=== PATIENT | female | born 1955 | race Caucasian/White ===

== ENCOUNTER → 2019-03-14 | Outpatient (CLI) | payer BC ==
--- NOTE | 2019-03-15 14:11 | MM ---
Reason for exam: screening (asymptomatic). Last mammogram was performed 3 years and 4 months ago. History: Patient is postmenopausal. Cyst aspiration of the left breast. Took estrogen for 11 years 6 months. Physical Findings: A clinical breast exam by your physician is recommended on an annual basis and results should be correlated with mammographic findings. MG 3D Screening Mammo W/Cad Bilateral CC and MLO view(s) were taken. Prior study comparison: November 12, 2015, bilateral MG screening mammo w CAD. October 22, 2004, bilateral screening mammogram. The breast tissue is heterogeneously dense. This may lower the sensitivity of mammography. There is no discrete abnormality. ASSESSMENT: Negative, BI-RAD 1 RECOMMENDATION: Routine screening mammogram of both breasts in 1 year.
== END | disposition home or self-care (01) ==
LOC: RADMAMWWP 09:25
PROVIDERS: ATTEND Family Medicine
DX: Z12.31 Encounter for screening mammogram for malignant neoplasm of breast (principal)
CPT/HCPCS: 77063; 77067

== ENCOUNTER → 2020-06-25 | Outpatient (CLI) | payer MEDICARE ==
--- NOTE | 2020-06-25 08:54 | MR ---
EXAMINATION TYPE: MR knee RT wo con DATE OF EXAM: 06/25/2020 COMPARISON: Outside right knee x-ray May 27, 2020. HISTORY: Rt knee pain per order. Pain and swelling for 30 years per patient. TECHNIQUE: Multiplanar, multisequence images of the knee is performed without IV contrast. FINDINGS: MEDIAL MENISCUS: Medial extrusion medial meniscus on coronal images. Dense triangle shaped increased signal posterior horn extending towards the central body does not definitively extend to articular raza rface. Anterior horn is intact. LATERAL MENISCUS: Anterior and posterior horns are intact without tear. CRUCIATE LIGAMENTS: The anterior and posterior cruciate ligaments are intact and unremarkable. COLLATERAL LIGAMENTS: The medial collateral ligament and lateral collateral ligament complex are inta ct. Some thickening of the proximal portions is noted. Some increased signal of the proximal attachme nt of the lateral collateral ligament complex localized to the biceps femoris. EXTENSOR MECHANISM: Visualized quadriceps and patellar tendons are intact. EFFUSION: There is a large suprapatellar joint effusion. POPLITEAL CYST: No popliteal/dsouza cyst. TRICOMPARTMENT SPACES: Moderate to severe narrowing with mild spurring patellofemoral compartment. Mi ld to moderate narrowing and spurring medial and lateral tibiofemoral compartments. CARTILAGE: Significant chondromalacia patella with full-thickness cartilaginous loss along majority o f the posterior patellar pole. Fissuring and cartilaginous loss medial tibiofemoral compartment. BONE MARROW SIGNAL: Small focal areas of increased T2 signal posterior central patella axial images 1 9 and 20 for reference at site of full-thickness cartilaginous loss. Subchondral cystic change centra l tibial plateau near condyles. The lateral tibial plateau shows roughly 8 mm AP by 10 mm transverse coronal image 15 and sagittal image 20 of low T1 and increased T2 signal central aspect. There is add itional subchondral cystic change lateral aspect distal lateral femoral condyle with some surrounding osseous edema sagittal image 23 and coronal image 16. OTHER: No additional significant abnormality is appreciated. IMPRESSION: 1. Large suprapatellar joint effusion. 2. 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 Significant full-thicknes s chondral malacia patella noted. More moderate degenerative changes medial lateral tibiofemoral comp artments as detailed above. 3. Significant intrasubstance tear posterior horn medial meniscus extending to central body. Full-thi ckness tear not distinctly visualized but difficult to exclude.
== END | disposition home or self-care (01) ==
LOC: RADMRIMAIN 07:27
PROVIDERS: ATTEND Orthopaedic Surgery
DX: S83.241A Other tear of medial meniscus, current injury, right knee, initial encounter (principal); M17.11 Unilateral primary osteoarthritis, right knee; M22.41 Chondromalacia patellae, right knee

== ENCOUNTER → 2020-09-10 | Outpatient (CLI) | payer MEDICARE ==
--- NOTE | 2020-09-10 12:59 | XR ---
EXAMINATION TYPE: XR chest 2V DATE OF EXAM: 09/10/2020 COMPARISON: NONE HISTORY: Shortness of breath, R06.02 TECHNIQUE: Frontal and lateral views of the chest are obtained. FINDINGS: There is no focal air space opacity, pleural effusion, or pneumothorax seen. The cardiac silhouette size is within normal limits. The osseous structures are intact. IMPRESSION: No acute cardiopulmonary process.
== END | disposition home or self-care (01) ==
LOC: RADXRMAIN 10:35
PROVIDERS: ATTEND Family Medicine
DX: R06.02 Shortness of breath (principal); Z85.118 Personal history of other malignant neoplasm of bronchus and lung
CPT/HCPCS: 71046

== ENCOUNTER → 2020-09-11 | Outpatient (CLI) | payer MEDICARE ==
--- NOTE | 2020-09-11 15:32 | US ---
EXAMINATION TYPE: US carotid duplex BILAT DATE OF EXAM: 09/11/2020 COMPARISON: NONE CLINICAL HISTORY: R42 dizziness. Dizziness EXAM MEASUREMENTS: RIGHT: Peak Systolic Velocity (PSV) cm/sec ----- Right CCA: 72.1 ----- Right ICA: 109.9 ----- Right ECA: 121.5 ICA/CCA ratio: 1.5 RIGHT: End Diastole cm/sec ----- Right CCA: 24.1 ----- Right ICA: 37.2 ----- Right ECA: 16.9 LEFT: Peak Systolic Velocity (PSV) cm/sec ----- Left CCA: 88.1 ----- Left ICA: 178.00 ----- Left ECA: 67.7 ICA/CCA ratio: 2.0 LEFT: End Diastole cm/sec ----- Left CCA: 32.8 ----- Left ICA: 64.1 ----- Left ECA: 16.0 VERTEBRALS (direction of flow): Right Vertebral: Antegrade Left Vertebral: Antegrade Rhythm: Normal Atheromatous plaquing is present. There is increased left internal carotid artery velocity in the ran ge of moderate narrowing 50-69%. IMPRESSION: Moderate left internal carotid artery stenosis between 50 and 69% Criteria for Assigning % of Stenosis / Diameter reduction (Estimation based on the indirect measurements of the internal carotid artery velocities (ICA PSV). 1. Normal (no stenosis)=ICA PSV < 125 cm/s: ratio < 2.0: ICA EDV<40 cm/s. 2. Less than 50% stenosis=ICA PSV < 125 cm/s: ratio < 2.0: ICA EDV<40 cm/s. 3. 50 to 69% stenosis=ICA PSV of 125 to 230 cm/s: ration 2.0 ? 4.0: ICA EDV 40-100 cm/s. 4. Greater than 70% stenosis to near occlusion= ICA PSV > 230 cm/s: ratio > 4.0: ICA EDV > 100 cm/s. 5. Near occlusion= ICA PSV velocities may be low or undetectable: variable ratio and ICA EDV. 6. Total occlusion=unable to detect flow.
== END | disposition home or self-care (01) ==
LOC: RADUSWWP 14:48
PROVIDERS: ATTEND Family Medicine
DX: I65.22 Occlusion and stenosis of left carotid artery (principal)
CPT/HCPCS: 93880

== ENCOUNTER → 2021-08-18 | Outpatient (CLI) | payer MEDICARE ==
--- NOTE | 2021-08-19 14:23 | MM ---
Reason for exam: screening (asymptomatic). Last mammogram was performed 2 years and 5 months ago. History: Patient is postmenopausal. Cyst aspiration of the left breast. Took hormonal contraceptives for 10 years. Took estrogen for 11 years 6 months. Physical Findings: A clinical breast exam by your physician is recommended on an annual basis and results should be correlated with mammographic findings. MG Screening Mammo w CAD Bilateral CC and MLO view(s) were taken. Prior study comparison: March 14, 2019, bilateral MG 3d screening mammo w/cad. November 12, 2015, bilateral MG screening mammo w CAD. There are scattered fibroglandular densities. No significant changes when compared with prior studies. ASSESSMENT: Benign, BI-RAD 2 RECOMMENDATION: Routine screening mammogram of both breasts in 1 year.
== END | disposition home or self-care (01) ==
LOC: RADMAMWWP 09:46
PROVIDERS: ATTEND Family Medicine
DX: Z12.31 Encounter for screening mammogram for malignant neoplasm of breast (principal); Z78.0 Asymptomatic menopausal state
CPT/HCPCS: 77067

== ENCOUNTER → 2022-02-14 | Outpatient (CLI) | payer MEDICARE ==
--- NOTE | 2022-02-15 16:48 | BD ---
EXAMINATION TYPE: Axial Bone Density DATE OF EXAM: 02/14/2022 COMPARISON: NONE CLINICAL HISTORY: 66 years year old Female. ICD-10 CODE: N95.1 POST MENOPAUSAL SYMPTOMS Height: 64 IN Weight: 211 LBS FRAX RISK QUESTIONS: Secondary Osteoporosis: 3. Menopause before 45: PARTIAL HYST AGE 36Current Tobacco Use: YES RISK FACTORS HISTORY OF: History of Wrist Fracture: LT WRIST FX AGE 23 Active: YES Diet low in dairy products/other sources of calcium: YES Postmenopausal woman: PARTIAL HYST AGE 36 Take estrogen and/or progesterone medications: NOT NOW How lon YEARS MEDICATIONS: Additional Medications: PROZAC, CRESTOR, 81 MG ASPIRIN, EXAM MEASUREMENTS: Bone mineral densitometry was performed using the Site Organic System. Bone mineral density as measured about the Lumbar spine is: ----- L1-L4(G/cm2): 1.422 T Score Values are as follows: ----- L1: 0.0 ----- L2: 2.2 ----- L3: 2.4 ----- L4: 3.2 ----- L1-L4: 2. Bone mineral density BASELINE Bone mineral density about the R hip (g/cm2): 1.102 Bone mineral density about the L hip (g/cm2): 1.089 T Score values are as follows: -----R Neck: 0.5 -----L Neck: 0.4 -----R Total: 1.6 -----L Total: 1.6 Bone mineral density BASELINE FRAX%s: The graph provided illustrates a 5.8 chance for a major osteoporotic fx and a 0.3 chance for the hips probability for fx in 10 years time. IMPRESSION: Normal (Values between +1 and -1 indicate normal bone mass). Consider repeating this study in 5 year s or sooner if there is some new clinical indication. NOTE: T-SCORE=SD OF THE YOUNG ADULT MEAN.
== END | disposition home or self-care (01) ==
LOC: RADBDWWP 16:18
PROVIDERS: ATTEND Family Medicine
DX: Z78.0 Asymptomatic menopausal state (principal)
CPT/HCPCS: 77080

== ENCOUNTER → 2022-07-19 | Outpatient (CLI) | payer MEDICARE ==
--- NOTE | 2022-07-19 07:47 | CTL ---
EXAMINATION TYPE: CT Low Dose Lung DATE OF EXAM ORDERED: 07/19/2022 HISTORY: Long-term tobacco use. Lung cancer screening CT DLP: 130.[address] CTDI: 3.8 mGy Automated exposure control for dose reduction was used. SCREENING VISIT: Baseline COMPARISON: None TECHNIQUE: Low dose computed tomography scan was performed through the chest at 1 mm thick sections a nd reconstructed images in multiple planes at 1 mm and [address] DIAGNOSTIC QUALITY: Limited, but interpretable FINDINGS: LUNG NODULES: Small subcentimeter nodule evaluation limited by underlying groundglass opacities and r eticulation along with areas of fibrotic change and/or honeycombing noted bilaterally. For reference there is a 3 to 4 mm peripheral calcified nodule of benign granuloma lateral left lung axial image 13 1. No definitive greater than 5 mm noncalcified pulmonary nodules. LUNGS: COPD: Severity: Mild Fibrosis: Severity: Moderate to advanced bilateral fibrotic changes predominantly peripherally with b oth upper and lower lung involvement. Lymph nodes: Prominent but subcentimeter prevascular along with paratracheal lymph nodes Other findings: Prominent pulmonary arteries suggesting underlying pulmonary hypertension RIGHT PLEURAL SPACE: Effusion: None Calcification: None Thickening: None Pneumothorax: None LEFT PLEURAL SPACE: Effusion: None Calcification: None Thickening: None Pneumothorax: None HEART: Heart Size: Normal Coronary Calcification: Moderate Pericardial Effusion: Trace OTHER FINDINGS: Upper abdomen: None Bony thorax: None Supraclavicular region: None Other: None IMPRESSION: Moderate to advanced parenchymal fibrotic changes bilaterally involving both upper and lo wer lungs. Mild emphysematous change. No suspicious nodules or masses. CT LUNG RAD AND CT CHEST RECOMMENDATION: Lung-Rad 1 Negative: Continue annual screening with LDCT in 12 months. S Modifier (other clinically significant findings): S Significant bilateral pulmonary fibrotic changes. Correlate for IPF. Consider pulmonary referral. Und erlying pulmonary artery hypertension suspected.
== END | disposition home or self-care (01) ==
LOC: RADCTMAIN 06:17
PROVIDERS: ATTEND Family Medicine
DX: Z12.2 Encounter for screening for malignant neoplasm of respiratory organs (principal); J84.10 Pulmonary fibrosis, unspecified; Z87.891 Personal history of nicotine dependence
CPT/HCPCS: 71271

== ENCOUNTER → 2023-08-08 | Outpatient (CLI) | payer MEDICARE ==
--- NOTE | 2023-08-16 12:15 | CTL ---
EXAMINATION TYPE: CT Low Dose Lung DATE OF EXAM: 08/08/2023 10:28 AM CLINICAL INDICATION:Female, 68 years old with history of R91.8 ABNORMAL FINDING LUNG FIELD; Nicotine dependence 1 pack a day for 35 years , history of tobacco use. COMPARISON: 07/19/2022 report only. TECHNIQUE: Multiple axial non-contrast scans were obtained from approximately the lung apices through the upper abdomen. Coronal and sagittal reformatted images were obtained. Low dose technique was uti lized. CT DLP: 82.9 mGycm, Automated exposure control for dose reduction was used. CT Contrast: Contrast used: None Oral contrast used: None FINDINGS: ======== Lack of intravenous contrast and low dose technique limits the evaluation of the vascular and soft ti ssue structures. LUNGS: No evidence of pulmonary fibrosis. No evidence of focal consolidation, pneumothorax or pleural effusion. Redemonstration of fibrotic changes throughout the lungs most pronounced along the periphery with sca ttered groundglass opacities. Nodules: RUL: None. RML: None. RLL: None. YULY: None. LLL: None. AIRWAY: Patent and unremarkable. HEART: Size within normal limits. Moderate to severe coronary artery calcifications. The pulmonary tr unk is dilated up to 1 cm 2.8 cm. MEDIASTINUM: No gross evidence of adenopathy. Moderate coronary artery atherosclerosis. VASCULATURE: No aortic aneurysm. MUSCULOSKELETAL: No acute osseous abnormalities SOFT TISSUES/LYMPH NODES: Prominent lymph nodes in the mediastinum measuring up to 9 mm in short axis in the right low paratracheal and 11 mm in short axis in the AP window. LOWER NECK: No significant findings. UPPER ABDOMEN: No significant findings. IMPRESSION: 1. No clinically significant pulmonary nodules. 2. Moderate Pulmonary fibrotic change suspicious for underlying pulmonary interstitial disease possib ly NSIP sequela prior atypical infection such as covid 19. 3. Evidence of pulmonary hypertension. 4. Moderate coronary artery calcifications. CT LUNG RAD AND CT CHEST RECOMMENDATION: Lung-Rad 1 Negative: Continue annual screening with LDCT in 12 months. S Modifier (other clinically significant findings): None Recommend smoking cessation (if current smoker), or continuation of smoking cessation (if prior smoke r). Annual screening for lung cancer with low-dose computed tomography is recommended in adults ages 55 to 77 years who have a 30 pack-year smoking history and currently smoke or have quit within the pa st 15 years. Screening should be discontinued once a person has not smoked for 15 years or develops a health problem that substantially limits life expectancy or the ability or willingness to have curat alexandr lung surgery. Lung rads 2021 [email or web address]
== END | disposition home or self-care (01) ==
LOC: RADCTMAIN 09:57
PROVIDERS: ATTEND Family Medicine
DX: Z12.2 Encounter for screening for malignant neoplasm of respiratory organs (principal); F17.210 Nicotine dependence, cigarettes, uncomplicated; I27.20 Pulmonary hypertension, unspecified; I25.10 Atherosclerotic heart disease of native coronary artery without angina pectoris; J84.10 Pulmonary fibrosis, unspecified; R91.8 Other nonspecific abnormal finding of lung field
CPT/HCPCS: 71271

== ENCOUNTER 2023-10-08 10:23 | Inpatient (IN) | payer MEDICARE ==
--- NOTE | 2023-10-08 10:55 | XR ---
EXAMINATION TYPE: XR chest 2V DATE OF EXAM: 10/08/2023 COMPARISON: 09/10/2020 INDICATION: Pneumonia short of breath covid TECHNIQUE: Single frontal view of the chest is obtained. FINDINGS: The heart size is normal. The pulmonary vasculature is prominent. Mild scattered diffuse increased lung markings are present which can be compatible with atypical pneu monia. Focal consolidation is not identified. IMPRESSION: 1. Increased lung markings can be compatible with atypical pneumonia. 2. Some vascular prominence evident.
[2023-10-08] MEDS ORDERED: ALBUTEROL NEBULIZED 2.5 MG/3 ML INHALATION STA (12:22)
--- NOTE | 2023-10-08 12:24 | ED ---
SOB HPI - General Chief Complaint: Shortness of Breath Stated Complaint: Low O2 Time Seen by Provider: 10/08/23 11:51 Source: patient Mode of arrival: ambulatory Limitations: no limitations - History of Present Illness Initial Comments: The patient is a 68-year-old female who has a history of hyperlipidemia and COPD. But otherwise healthy presents emergency room who presents to emergency room with complaints of shortness of breath and flulike symptoms. Patient had not home hospital Covid test earlier in the week and follow up at urgent care to hopefully start the antiviral however was found to be hypoxic with ambulation. Patient had a positive Covid test that was confirmed at the urgent care. Her O2 sat on ambulation dropped to 85% was 92-93% at rest. Patient is not on routine inhalers at home at this time. She has not coming pulmonology appointment with Dr. Martinez who is she is newly establishing with. SHe smokes about half a pack of cigarettes a day. She denies any chest pain or hemoptysis. She had a fever earlier in the week but states that this is improved. She denies any pain or signs of lower Erlinda's. Denies any recent travel or recent surgery. Denies any history of DVT or PE - Related Data Home Medications Medication Instructions Recorded Confirmed Naproxen Sodium [Aleve] 220 mg PO Q12HR PRN 04/21/15 04/21/15 Allergies Allergy/AdvReac Type Severity Reaction Status Date / Time codeine Allergy Unknown Nausea & Verified 04/21/15 17:41 Vomiting Review of Systems ROS Statement: Those systems with pertinent positive or pertinent negative responses have been documented in the HPI. ROS Other: All systems not noted in ROS Statement are negative. Past Medical History Past Medical History: COPD Additional Past Medical History / Comment(s): ECZEMA? ON HIP History of Any Multi-Drug Resistant Organisms: None Reported Past Surgical History: Hysterectomy, Orthopedic Surgery Additional Past Surgical History / Comment(s): ANKLE SURG Past Anesthesia/Blood Transfusion Reactions: No Reported Reaction Past Psychological History: Depression Smoking Status: Current every day smoker Past Alcohol Use History: None Reported Past Drug Use History: None Reported - Past Family History Sister(s) Family Medical History: Diabetes Mellitus Additional Family Medical History / Comment(s): X2 SISTERS WITH DIABETES. Mother Family Medical History: Cancer Additional Family Medical History / Comment(s): CERVICAL CA General Exam Limitations: no limitations General appearance: alert, in no apparent distress Head exam: Present: atraumatic Eye exam: Present: normal appearance ENT exam: Present: normal exam Neck exam: Present: normal inspection Respiratory exam: Present: normal lung sounds bilaterally. Absent: wheezes Cardiovascular Exam: Present: regular rate Extremities exam: Present: full ROM Back exam: Present: full ROM Neurological exam: Present: alert, oriented X3, CN II-XII intact Psychiatric exam: Present: normal affect, normal mood Skin exam: Present: warm, dry Course Vital Signs 10/08/23 10/08/23 10:24 12:16 Temperature 97.5 F L Pulse Rate 76 Respiratory 18 20 Rate Blood Pressure 119/74 O2 Sat by Pulse 92 L Oximetry - Reevaluation(s) Reevaluation #1: 10/08/23 15:35 Respiratory therapist and we cannot get nebulizer treatments as the patient's Covid positive. She would only do inhaled albuterol which the patient received. she continued to be hypoxic with ambulation at 89%. She will be admitted for further management of the covid 19 and hypoxia. Medical Decision Making - Medical Decision Making Was pt. sent in by a medical professional or institution (, PA, COMPUTER NUMERICAL CONTROL OPERATOR, urgent care, hospital, or retirement...) When possible be specific @ -Patient was sent in from an urgent care for hypoxia with ambulation Did you speak to anyone other than the patient for history (EMS, parent, family, police, friend...)? What history was obtained from this source @ -[No] Did you review nursing and triage notes (agree or disagree)? Why? @ -[I reviewed and agree with nursing and triage notes] Were old charts reviewed (outside hosp., previous admission, EMS record, old EKG, old radiological studies, urgent care reports/EKG's, retirement records)? Report findings @ -[No old charts were reviewed] Differential Diagnosis (chest pain, altered mental status, abdominal pain women, abdominal pain men, vaginal bleeding, weakness, fever, dyspnea, syncope, headache, dizziness, GI bleed, back pain, seizure, CVA, palpatations, mental health, musculoskeletal)? @ -[not applicable] EKG interpreted by me (3pts min.). @ -EKG completed on 1124 shows normal sinus rhythm rate of 69bpm, no acute ST segment elevation X-rays interpreted by me (1pt min.). @ -X-ray shows atypical opacities likely from Covid ammonia. CT interpreted by me (1pt min.). @ -[None done] U/S interpreted by me (1pt. min.). @ -[None done] What testing was considered but not performed or refused? (CT, X-rays, U/S, labs)? Why? @ -[None] What meds were considered but not given or refused? Why? @ -Nebulizer treatment with albuterol however respiratory a contact to this as she is positive for Covid Did you discuss the management of the patient with other professionals (professionals i.e. , PA, COMPUTER NUMERICAL CONTROL OPERATOR, lab, RT, psych nurse, social work specialist, flying squad salesperson, teacher, space operations officer, hospice case manager)? Give summary @ -[I spoke with [facility] admitting physician Dr. Villalba regarding patient's admission for hypoxia and Covid] Was smoking cessation discussed for >3mins.? @ -[No] Was critical care preformed (if so, how long)? @ -[No] Were there social determinants of health that impacted care today? How? (Homelessness, low income, unemployed, alcoholism, drug addiction, transportation, low edu. Level, literacy, decrease access to med. care, custodial, rehab)? @ -[No] Was there de-escalation of care discussed even if they declined (Discuss DNR or withdrawal of care, Hospice)? DNR status @ -[No] What co-morbidities impacted this encounter? (DM, HTN, Smoking, COPD, CAD, Cancer, CVA, ARF, Chemo, Hep., AIDS, mental health diagnosis, sleep apnea, morbid obesity)? @ -COPD, smoking Was patient admitted / discharged? Hospital course, mention meds given and route, prescriptions, significant lab abnormalities, going to OR and other pertinent info. @ -This patient will be admitted to the hospital for Covid, hypoxia. Undiagnosed new problem with uncertain prognosis? @ -[No] Drug Therapy requiring intensive monitoring for toxicity (Heparin, Nitro, Insulin, Cardizem)? @ -[No] Were any procedures done? @ -[No] Diagnosis/symptom? @ -COVID-19, hypoxia, COPD Acute, or Chronic, or Acute on Chronic? @ -Acute Uncomplicated (without systemic symptoms) or Complicated (systemic symptoms)? @ -Complicated Side effects of treatment? @ -[No] Exacerbation, Progression, or Severe Exacerbation? @ -[No] Poses a threat to life or bodily function? How? (Chest pain, USA, VT, pneumonia, PE, COPD, DKA, ARF, appy, cholecystitis, CVA, Diverticulitis, Homicidal, Suicidal, threat to staff... and all critical care pts) @ -Yes, hypoxia - Lab Data Result diagrams: 10/08/23 11:45 10/08/23 11:45 Lab Results 10/08/23 10/08/23 10/08/23 Range/Units 11:45 11:45 11:45 WBC 8.1 (3.8-10.6) k/uL RBC 4.34 (3.80-5.40) m/uL Hgb 13.1 (11.4-16.0) gm/dL Hct 39.2 (34.0-46.0) % MCV 90.3 (80.0-100.0) fL MCH 30.1 (25.0-35.0) pg MCHC 33.3 (31.0-37.0) g/dL RDW 13.3 (11.5-15.5) % Plt Count 262 (150-450) k/uL MPV 7.6 Neutrophils % 62 % Lymphocytes % 32 % Monocytes % 4 % Eosinophils % 1 % Basophils % 0 % Neutrophils # 5.0 (1.3-7.7) k/uL Lymphocytes # 2.6 (1.0-4.8) k/uL Monocytes # 0.4 (0-1.0) k/uL Eosinophils # 0.1 (0-0.7) k/uL Basophils # 0.0 (0-0.2) k/uL PT 10.2 (10.0-12.5) sec INR 0.9 (<1.2) APTT 27.2 (22.0-30.0) sec Sodium 136 L (137-145) mmol/L Potassium 4.2 (3.5-5.1) mmol/L Chloride 103 (98-107) mmol/L Carbon Dioxide 24 (22-30) mmol/L Anion Gap 9 mmol/L BUN 13 (7-17) mg/dL Creatinine 0.61 (0.52-1.04) mg/dL Est GFR (CKD-EPI)AfAm >90 (>60 ml/min/1.73 sqM) Est GFR (CKD-EPI)NonAf >90 (>60 ml/min/1.73 sqM) Glucose 80 (74-99) mg/dL Calcium 8.6 (8.4-10.2) mg/dL Total Bilirubin 0.6 (0.2-1.3) mg/dL AST 69 H (14-36) U/L ALT 42 H (4-34) U/L Alkaline Phosphatase 55 (38-126) U/L Troponin I (0.000-0.034) ng/mL NT-Pro-B Natriuret Pep 48 pg/mL Total Protein 7.0 (6.3-8.2) g/dL Albumin 3.5 (3.5-5.0) g/dL 10/08/23 Range/Units 11:45 WBC (3.8-10.6) k/uL RBC (3.80-5.40) m/uL Hgb (11.4-16.0) gm/dL Hct (34.0-46.0) % MCV (80.0-100.0) fL MCH (25.0-35.0) pg MCHC (31.0-37.0) g/dL RDW (11.5-15.5) % Plt Count (150-450) k/uL MPV Neutrophils % % Lymphocytes % % Monocytes % % Eosinophils % % Basophils % % Neutrophils # (1.3-7.7) k/uL Lymphocytes # (1.0-4.8) k/uL Monocytes # (0-1.0) k/uL Eosinophils # (0-0.7) k/uL Basophils # (0-0.2) k/uL PT (10.0-12.5) sec INR (<1.2) APTT (22.0-30.0) sec Sodium (137-145) mmol/L Potassium (3.5-5.1) mmol/L Chloride (98-107) mmol/L Carbon Dioxide (22-30) mmol/L Anion Gap mmol/L BUN (7-17) mg/dL Creatinine (0.52-1.04) mg/dL Est GFR (CKD-EPI)AfAm (>60 ml/min/1.73 sqM) Est GFR (CKD-EPI)NonAf (>60 ml/min/1.73 sqM) Glucose (74-99) mg/dL Calcium (8.4-10.2) mg/dL Total Bilirubin (0.2-1.3) mg/dL AST (14-36) U/L ALT (4-34) U/L Alkaline Phosphatase (38-126) U/L Troponin I <0.012 (0.000-0.034) ng/mL NT-Pro-B Natriuret Pep pg/mL Total Protein (6.3-8.2) g/dL Albumin (3.5-5.0) g/dL - EKG Data -: EKG Interpreted by Me - Radiology Data Radiology results: report reviewed (EKG shows normal sinus rhythm at a rate of 69 bpm), image reviewed Disposition Clinical Impression: Hypoxia, COVID-19, COPD (chronic obstructive pulmonary disease) Disposition: ADMITTED IP TO THIS [facility] Referrals: Octavio Mcconnell DO [Primary Care Provider] - 1-2 days Decision to Admit Reason: Admit from [facility] Decision Time: 16:01
[2023-10-08 12:36] LABS: Basophils % (A) 0 %; Eosinophils # (A) 0.1 k/uL (0-0.7); Eosinophils % (A) 1 %; HCT 39.2 % (34.0-46.0); HGB 13.1 gm/dL (11.4-16.0); Lymphocytes # (A) 2.6 k/uL (1.0-4.8); Lymphocytes % (A) 32 %; MCH 30.1 pg (25.0-35.0); MCHC 33.3 g/dL (31.0-37.0); MCV 90.3 fL (80.0-100.0); Mean Platelet Volume 7.6; Monocytes # (A) 0.4 k/uL (0-1.0); Monocytes % (A) 4 %; Neutrophils % (A) 62 %; Platelet Count 262 k/uL (150-450); RBC 4.34 m/uL (3.80-5.40); RDW 13.3 % (11.5-15.5); WBC 8.1 k/uL (3.8-10.6)
[2023-10-08 12:49] LABS: INR 0.9 (<1.2); Partial Thromboplastin Time 27.2 sec (22.0-30.0); Prothrombin Time 10.2 sec (10.0-12.5)
[2023-10-08 12:59] LABS: ALT 42 U/L (4-34); AST 69 U/L (14-36); African American GFR (CKD) >90 (>60 ml/min/1.73 sqM); Albumin 3.5 g/dL (3.5-5.0); Alkaline Phosphatase 55 U/L (38-126); Anion Gap 9 mmol/L; Blood Urea Nitrogen 13 mg/dL (7-17); Calcium 8.6 mg/dL (8.4-10.2); Carbon Dioxide 24 mmol/L (22-30); Chloride 103 mmol/L (98-107); Glucose 80 mg/dL (74-99); Non-African American GFR(CKD) >90 (>60 ml/min/1.73 sqM); Potassium 4.2 mmol/L (3.5-5.1); Sodium 136 mmol/L (137-145); Total Bilirubin 0.6 mg/dL (0.2-1.3)
[2023-10-08 13:06] LABS: NT-Pro-B-Type Natriuretic Pept 48 pg/mL
[2023-10-08] MEDS ORDERED: ALBUTEROL HFA INHALER INHALATION STA (13:32)
[2023-10-08] MEDS ORDERED: methylPREDNISolone SOD SUCCI 125 MG/2 ML VIAL IV STA (15:22)
[2023-10-08] MEDS ORDERED: NICOTINE 21MG/24HR PATCH TRANSDERM STA (15:33)
[2023-10-08] MEDS ORDERED: NALOXONE 0.4 MG/ML 1 ML VIAL IV PRN (15:45)
[2023-10-08] MEDS: SODIUM CHLORIDE 0.9% 1,000 ML IV SCH (16:38)
[2023-10-08] MEDS ORDERED: ACETAMINOPHEN TAB 325 MG TAB PO PRN (19:12)
[2023-10-08] MEDS: ALBUTEROL HFA INHALER INHALATION SCH (20:52)
[2023-10-09] MEDS: SODIUM CHLORIDE 0.9% 1,000 ML IV SCH ×4 (00:24→22:27)
--- NOTE | 2023-10-09 00:55 | P.CNPUL ---
History of Present Illness Consult date: 10/09/23 Requesting physician: Malini Harden Reason for consult: other (COVID-19) Chief complaint: URI-like symptoms History of present illness: I am seeing this patient in new consultation today 10/09/2023 in the emergency room after she visited a local urgent care center and was found to be hypoxemic. She did test positive for COVID-19 outpatient. Patient is a 68-year-old white female with past medical history significant for hyperlipidemia and COPD. She utilizes a when necessary albuterol inhaler outpatient. She has a history of heavy tobacco dependence, and is down to one half pack per day. Her primary care provider is Dr. Mcconnell, and she did have new patient appointment set up with Dr. Martinez in the pulmonary office next week. She has had a recent low-dose lung CT screening for lung cancer back in August of this year which did show moderate pulmonary fibrotic changes suspicious for underlying pulmonary interstitial disease possibly nonspecific interstitial pneumonia. Looking back, these findings were evident on a chest CT taken 1 year prior. More recently, the patient started having URI-like symptoms starting last week on Monday. She was having a dry nonproductive cough, subjective fevers/chills, body aches, fatigue. She is also having exertional shortness of breath. She did take a home COVID-19 test on Monday, which was positive. She did receive her orginal Covid 19 vaccination and one booster. She went to an urgent care center yesterday, and was found to have low oxygen saturations while ambulating. It was recommended that she come to the emergency room. Currently, the patient is on room air, sitting in a chair near the bedside, in no acute distress. Chest x-ray on arrival showed increased lung markings, possibly related to COVID-19 pneumonia or above. No focal consolidation. CBC on arrival did not show any leukocytosis and was essentially unremarkable. She is afebrile. BMP was also unremarkable. Troponin less than 0.012. NT proBNP low. Patient is on room air. She was started on Decadron. Lovenox was added for DVT prophylaxis. Normal saline is also infusing at 130 ML's per hour. Patient is hemodynamically stable, and will be admitted to the general medical floor. Review of Systems REVIEW OF SYSTEMS: CONSTITUTIONAL: Denies any recent significant weight loss or weight gain. EYES: Denies change in vision. EARS, NOSE, MOUTH, THROAT: Denies headaches, denies sore throat. CARDIOVASCULAR: Denies chest pain, palpitations or syncopal episodes. RESPIRATORY: See HPI GASTROINTESTINAL: Admits isolated/self-limiting nausea and vomiting and occasional diarrhea. No abdominal pain. No bleeding. Admits reduced appetite. GENITOURINARY: Denies hematuria, denies infections. MUSKULOSKELETAL: Denies pain, denies swelling. INTEGUMENTARY: Denies rash, denies eczema. NEUROLOGICAL: Denies recent memory loss, no recent seizure activity. PSYCHIATRIC: Denies anxiety, denies depression. HEMATOLOGIC/LYMPHATIC: Denies anemia, denies enlarged lymph node Past Medical History Past Medical History: COPD Additional Past Medical History / Comment(s): ECZEMA? ON HIP History of Any Multi-Drug Resistant Organisms: None Reported Past Surgical History: Hysterectomy, Orthopedic Surgery Additional Past Surgical History / Comment(s): ANKLE SURG Past Anesthesia/Blood Transfusion Reactions: No Reported Reaction Past Psychological History: Depression Smoking Status: Current every day smoker Past Alcohol Use History: None Reported Past Drug Use History: None Reported - Past Family History Sister(s) Family Medical History: Diabetes Mellitus Additional Family Medical History / Comment(s): X2 SISTERS WITH DIABETES. Mother Family Medical History: Cancer Additional Family Medical History / Comment(s): CERVICAL CA Medications and Allergies Home Medications Medication Instructions Recorded Confirmed Type FLUoxetine HCL 80 mg PO DAILY 10/08/23 10/08/23 History Rosuvastatin Calcium [Crestor] 40 mg PO DAILY 10/08/23 10/08/23 History Allergies Allergy/AdvReac Type Severity Reaction Status Date / Time codeine Allergy Unknown Nausea & Verified 10/08/23 16:44 Vomiting Physical Exam Vitals: Vital Signs Temp Pulse Resp BP Pulse Ox 10/08/23 22:59 92 L 10/08/23 22:58 85 22 137/60 83 L 10/08/23 20:52 93 L 10/08/23 16:30 98.2 F 77 18 108/56 97 10/08/23 12:16 20 10/08/23 10:24 97.5 F L 76 18 119/74 92 L Intake and Output 10/08/23 10/08/23 10/09/23 14:59 22:59 06:59 Other: Weight 92.986 kg GENERAL EXAM: Alert, 68-year-old white female appearing stated age , comfortable in no apparent distress. HEAD: Normocephalic and atraumatic EYES: Normal reaction of pupils, equal size. NOSE: Clear with pink turbinates. THROAT: No erythema or exudates. NECK: No masses, no JVD. CHEST: No chest wall deformity. LUNGS: Equal air entry with bibasilar inspiratory crackles/rales. No wheezes, rhonchi or focal dullness. On room air. No conversational dyspnea or accessory muscle use.. CVS: S1 and S2 normal with no audible murmur, regular rhythm. No extra heart sounds ABDOMEN: No hepatosplenomegaly, active bowel sounds, no guarding or rigidity. SPINE: No scoliosis or deformity SKIN: No rashes CENTRAL NERVOUS SYSTEM: No focal deficits, tone is normal in all 4 extremities. EXTREMITIES: There is severe digital clubbing. There is no peripheral edema or cyanosis. Peripheral pulses are intact. Results - Laboratory Findings CBC and BMP: 10/09/23 07:25 10/09/23 07:25 PT/INR, D-dimer PT 10.2 sec (10.0-12.5) 10/08/23 11:45 INR 0.9 (<1.2) 10/08/23 11:45 Abnormal lab findings: Abnormal Labs 10/08/23 11:45 Sodium 136 L AST 69 H ALT 42 H - Diagnostic Findings Chest x-ray: image reviewed Assessment and Plan Assessment: Acute COVID-19 infection and suspected COVID-19 pneumonia. Chest x-ray on arrival showed increased lung markings, possibly related to COVID-19 pneumonia. No focal consolidations. Exertional dyspnea, secondary to above Suspected underlying ILD, low-dose lung CT screening for lung cancer back in and the year prior, did show moderate pulmonary fibrotic changes suspicious for underlying pulmonary interstitial disease. Chronic obstructive pulmonary disease, stable Chronic ongoing tobacco dependence Hyperlipidemia Obesity, with a BMI of 34.1 kg/m Plan: Patient's medications, labs, chest x-ray reviewed. Continue supportive tr eatment. Currently on room air, however, patient was started on Decadron. Lovenox was added for DVT prophylaxis. Doubt superimposed bacterial infection. Check procalcitonin. Continue when necessary Ventolin HFA. Smoking cessation counseling performed. Patient currently has a nicotine patch on. Patient is to be admitted to the general medical floor. I have personally seen and examined the patient, performed the documentation and the assessment and plan as written. Number of minutes spent on the visit:20 The joint evaluation that was done along with a nurse practitioner. I also had the opportunity to work with Madison, the [facility] nurse was taking care of this patient in the emergency department. This evaluation was done in more than 30 minutes. In summary, the patient had interstitial lung disease/pulmonary fibrosis and this has been admitted on several CAT scans of the chest was done on outpatient basis. She is a chronic smoker. Based on the CAT scan findings, the images are consistent with IPF. The infiltrates and the chronic scarring in the lung bases with subpleural distribution and typical for idiopathic pulmonary fibrosis. For now, the patient is doing well. She has been vaccinated for Covid 19 and she has received only a single booster. This is the patient's first infection with Covid 19. The patient is going to be admitted treated with Decadron and oxygen patient is going to be monitored and if things remain stable should be able to get discharged the next 24-48 hours. She will need outpatient follow-up regarding her IPF. We'll check CRP, we'll check LDH, we'll check pro calcitonin. Time with Patient: Greater than 30
[2023-10-09 07:52] LABS: Basophils % (A) 0 %; Eosinophils % (A) 0 %; HCT 38.4 % (34.0-46.0); HGB 12.4 gm/dL (11.4-16.0); Lymphocytes # (A) 1.1 k/uL (1.0-4.8); Lymphocytes % (A) 25 %; MCH 29.8 pg (25.0-35.0); MCHC 32.3 g/dL (31.0-37.0); MCV 92.2 fL (80.0-100.0); Mean Platelet Volume 7.2; Monocytes # (A) 0.1 k/uL (0-1.0); Monocytes % (A) 2 %; Neutrophils # (A) 3.2 k/uL (1.3-7.7); Neutrophils % (A) 72 %; Platelet Count 249 k/uL (150-450); RBC 4.17 m/uL (3.80-5.40); RDW 12.8 % (11.5-15.5); WBC 4.4 k/uL (3.8-10.6)
[2023-10-09] MEDS: ALBUTEROL HFA INHALER INHALATION SCH ×4 (08:42→20:06)
[2023-10-09 09:07] LABS: ALT 43 U/L (4-34); AST 56 U/L (14-36); African American GFR (CKD) >90 (>60 ml/min/1.73 sqM); Albumin 3.5 g/dL (3.5-5.0); Alkaline Phosphatase 54 U/L (38-126); Anion Gap 9 mmol/L; Blood Urea Nitrogen 12 mg/dL (7-17); C Reactive Protein 6.6 mg/dL (<1.0); Calcium 8.6 mg/dL (8.4-10.2); Carbon Dioxide 23 mmol/L (22-30); Chloride 105 mmol/L (98-107); Glucose 182 mg/dL (74-99); Non-African American GFR(CKD) >90 (>60 ml/min/1.73 sqM); Potassium 4.1 mmol/L (3.5-5.1); Sodium 137 mmol/L (137-145); Total Bilirubin 0.4 mg/dL (0.2-1.3); Total Protein 6.8 g/dL (6.3-8.2)
[2023-10-09] MEDS: ATORVASTATIN 80 MG TAB PO SCH (09:36)
[2023-10-09] MEDS: FLUoxetine HCL 20 MG CAP PO SCH (09:37)
[2023-10-09] MEDS: dexAMETHasone 2 MG TAB PO SCH (09:37)
[2023-10-09] MEDS: NICOTINE 21MG/24HR PATCH TRANSDERM SCH (09:38)
[2023-10-09] MEDS: ENOXAPARIN 40 MG/0.4 ML SYRINGE SQ SCH (09:40)
--- NOTE | 2023-10-09 14:23 | P.HPIM ---
History of Present Illness H&P Date: 10/09/23 Chief Complaint: Dyspnea This is a 68-year-old female with past medical history significant for morbid obesity, ongoing nicotine dependence, COPD, depression and multiple other medical issues presented to an urgent care center, with worsening dyspnea, tested positive for Covid with hypoxia, proceeded the ER. Denies nausea vomiting or diarrhea. Reports last week she was treated by PCP for upper respiratory infection, dry nonproductive cough fevers and chills. Chest x-ray reported increased lung markings can be compatible with atypical pneumonia, some vascular prominence.ECG reported sinus rhythm. Upon ambulating to bathroom and patient's O2 sat decreased to 87%. Afebrile, normal WBC, hematology panel unremarkable, sodium 137, potassium 4.1,bicarb 23, BUN 12, creatinine 0.52, glucose 182 LFTs improving, LDH 445, troponins negative, CRP 6.6, pro calcitonin negative. Review of Systems ROS Statement: Those systems with pertinent positive or pertinent negative responses have been documented in the HPI. ROS Other: All systems not noted in ROS Statement are negative. Past Medical History Past Medical History: COPD Additional Past Medical History / Comment(s): ECZEMA? ON HIP History of Any Multi-Drug Resistant Organisms: None Reported Past Surgical History: Hysterectomy, Orthopedic Surgery Additional Past Surgical History / Comment(s): ANKLE SURG Past Anesthesia/Blood Transfusion Reactions: No Reported Reaction Past Psychological History: Depression Smoking Status: Current every day smoker Past Alcohol Use History: None Reported Past Drug Use History: None Reported - Past Family History Sister(s) Family Medical History: Diabetes Mellitus Additional Family Medical History / Comment(s): X2 SISTERS WITH DIABETES. Mother Family Medical History: Cancer Additional Family Medical History / Comment(s): CERVICAL CA Medications and Allergies Home Medications Medication Instructions Recorded Confirmed Type FLUoxetine HCL 80 mg PO DAILY 10/08/23 10/08/23 History Rosuvastatin Calcium [Crestor] 40 mg PO DAILY 10/08/23 10/08/23 History Allergies Allergy/AdvReac Type Severity Reaction Status Date / Time codeine Allergy Unknown Nausea & Verified 10/08/23 16:44 Vomiting Physical Exam Vitals: Vital Signs Temp Pulse Pulse Resp BP BP Pulse Ox 10/09/23 11:13 70 17 118/65 91 L 10/09/23 08:43 91 L 10/09/23 07:42 97.4 F L 86 20 124/64 92 L 10/09/23 06:48 97.7 F 81 17 123/71 89 L 10/09/23 03:30 71 12 123/65 91 L 10/09/23 03:16 97.6 F 75 17 123/65 93 L 10/09/23 02:30 71 20 122/71 90 L 10/09/23 01:30 73 20 95/63 89 L 10/09/23 01:10 75 15 95/63 94 L 10/09/23 01:00 80 13 92 L 10/09/23 00:58 85 12 10/08/23 23:12 15 95/63 94 L 10/08/23 22:59 92 L 10/08/23 22:58 85 22 137/60 83 L 10/08/23 20:52 93 L 10/08/23 16:30 98.2 F 77 18 108/56 97 PHYSICAL EXAM: VITAL SIGNS: [As above] GENERAL: Sitting up on stretcher, no acute distress HEENT: Normocephalic Conjunctivae normal. eyes normal. NECK: Supple, No JVD. No thyroid enlargement. No LNs CARDIOVASCULAR: S1, S2 regular.No murmur RESPIRATION: Equal air entry with with bibasilar crackles and scattered rhonchi. ABDOMEN: Soft, nontender . No guarding. no masses palpable. No ascites, No hepatosplenomegaly.Bowel sounds heard. LEGS: No edema. no swelling PSYCHIATRY: Alert and oriented X3, mood and affect normal. NERVOUS SYSTEM: Cranial N 2-12 grossly normal. Moves all 4 limbs.No focal deficits. Strength and sensation grossly intact.. Skin: Warm and dry, no rash. Results CBC & Chem 7: 10/09/23 07:25 10/09/23 07:25 Labs: Abnormal Lab Results - Last 24 Hours (Table) 10/09/23 10/09/23 Range/Units 07:25 07:25 Glucose 182 H (74-99) mg/dL AST 56 H (14-36) U/L ALT 43 H (4-34) U/L Lactate Dehydrogenase 445 H (120-246) U/L C-Reactive Protein 6.6 H (<1.0) mg/dL Assessment and Plan Assessment: Acute Covid-19 infection, possibly pneumonia Acute hypoxic respiratory failure, with exertion decreases to 87% room air, secondary to the above COPD Ongoing nicotine dependence Possible underlying pulmonary interstitial disease Morbid obesity, BMI 34 Depression Hyperlipidemia Plan: Continue on current medication regime ,monitoring and symptomatic treatment. Maintained on Covid cocktail with dexamethasone, vitamin supplements added. Smoking cessation reinforced. Nicotine patch in place. PPI ordered for GI prophylaxis. Lovenox and place for DVT prophylaxis. Aggressive pulmonary toileting with Ventolin HFA. Discharge planning possibly for tomorrow once exertional dyspnea improves and oxygen is weaned off. The impression and plan of care has been dictated as directed. : I performed a history and examination of this patient, discussed the same with the dictator. I agree with the dictator's note ,documented as a scribe. Any additional findings or plans will be noted.
[2023-10-09] MEDS: ZINC SULFATE 220 MG CAP PO SCH (16:07)
[2023-10-09] MEDS: ASCORBIC ACID 500 MG TAB PO SCH ×2 (16:07→21:31)
[2023-10-09] MEDS: CHOLECALCIFEROL 125 MCG (5000 IU) TABLET PO SCH (16:07)
[2023-10-09] MEDS: PANTOPRAZOLE 40 MG/10 ML VIAL IVP SCH (16:08)
[2023-10-09] MEDS ORDERED: TEMAZEPAM 7.5 MG CAP PO PRN (23:19)
[2023-10-10] MEDS: SODIUM CHLORIDE 0.9% 1,000 ML IV SCH ×2 (05:26→13:34)
[2023-10-10] MEDS: ALBUTEROL HFA INHALER INHALATION SCH ×2 (08:27→12:22)
[2023-10-10] MEDS: ASCORBIC ACID 500 MG TAB PO SCH (08:42)
[2023-10-10] MEDS: FLUoxetine HCL 20 MG CAP PO SCH (08:42)
[2023-10-10] MEDS: ZINC SULFATE 220 MG CAP PO SCH (08:43)
[2023-10-10] MEDS: CHOLECALCIFEROL 125 MCG (5000 IU) TABLET PO SCH (08:43)
[2023-10-10] MEDS: ATORVASTATIN 80 MG TAB PO SCH (08:43)
[2023-10-10] MEDS: PANTOPRAZOLE 40 MG/10 ML VIAL IVP SCH (08:43)
[2023-10-10] MEDS: ENOXAPARIN 40 MG/0.4 ML SYRINGE SQ SCH (08:43)
[2023-10-10] MEDS: dexAMETHasone 2 MG TAB PO SCH (08:43)
[2023-10-10 09:03] VITALS: RESP 18
[2023-10-10 10:02] LABS: ALT 40 U/L (4-34); AST 48 U/L (14-36); African American GFR (CKD) >90 (>60 ml/min/1.73 sqM); Albumin 3.3 g/dL (3.5-5.0); Alkaline Phosphatase 50 U/L (38-126); Anion Gap 10 mmol/L; Blood Urea Nitrogen 14 mg/dL (7-17); C Reactive Protein 3.3 mg/dL (<1.0); Calcium 8.6 mg/dL (8.4-10.2); Carbon Dioxide 24 mmol/L (22-30); Chloride 105 mmol/L (98-107); Glucose 100 mg/dL (74-99); Non-African American GFR(CKD) >90 (>60 ml/min/1.73 sqM); Potassium 4.3 mmol/L (3.5-5.1); Sodium 139 mmol/L (137-145); Total Bilirubin 0.4 mg/dL (0.2-1.3); Total Protein 6.6 g/dL (6.3-8.2)
[2023-10-10] MEDS: NICOTINE 21MG/24HR PATCH TRANSDERM SCH (10:44)
--- NOTE | 2023-10-10 12:03 | P.PN ---
Subjective Progress Note Date: 10/10/23 I am seeing this patient in new consultation today 10/09/2023 in the emergency room after she visited a local urgent care center and was found to be hypoxemic. She did test positive for COVID-19 outpatient. Patient is a 68-year-old white female with past medical history significant for hyperlipidemia and COPD. She utilizes a when necessary albuterol inhaler outpatient. She has a history of heavy tobacco dependence, and is down to one half pack per day. Her primary care provider is Dr. Mcconnell, and she did have new patient appointment set up with Dr. Martinez in the pulmonary office next week. She has had a recent low-dose lung CT screening for lung cancer back in August of this year which did show moderate pulmonary fibrotic changes suspicious for underlying pulmonary interstitial disease possibly nonspecific interstitial pneumonia. Looking back, these findings were evident on a chest CT taken 1 year prior. More recently, the patient started having URI-like symptoms starting last week on Monday. She was having a dry nonproductive cough, subjective fevers/chills, body aches, fatigue. She is also having exertional shortness of breath. She did take a home COVID-19 test on Monday, which was positive. She did receive her orginal Covid 19 vaccination and one booster. She went to an urgent care center yesterday, and was found to have low oxygen saturations while ambulating. It w as recommended that she come to the emergency room. Currently, the patient is on room air, sitting in a chair near the bedside, in no acute distress. Chest x-ray on arrival showed increased lung markings, possibly related to COVID-19 pneumonia or above. No focal consolidation. CBC on arrival did not show any leukocytosis and was essentially unremarkable. She is afebrile. BMP was also unremarkable. Troponin less than 0.012. NT proBNP low. Patient is on room air. She was started on Decadron. Lovenox was added for DVT prophylaxis. Normal saline is also infusing at 130 ML's per hour. Patient is hemodynamically stable, and will be admitted to the general medical floor. on 10/10/2023, seeing the patient for a follow-up. Clinically she is stable and she is ambulating. She is still desaturating with activity on room air and her pulse ox was in the low 80s. Based on that, I think the patient can be discharged home on steroids and oxygen therapy if oxygen is available for her today.Sodium is at 139, potassium is 4.3, BUN is at 40 with a creatinine of 0.5. Pro-calcitonin level has been low. Objective - Vital Signs Vital signs: Vital Signs Temp 98.9 F 10/10/23 06:42 Pulse 60 10/10/23 09:00 Resp 18 10/10/23 09:00 BP 113/60 10/10/23 09:00 Pulse Ox 92 L 10/10/23 11:56 FiO2 21 10/10/23 08:31 - Exam GENERAL EXAM: Alert, 68-year-old white female appearing stated age , comfortable in no apparent distress. HEAD: Normocephalic and atraumatic EYES: Normal reaction of pupils, equal size. NOSE: Clear with pink turbinates. THROAT: No erythema or exudates. NECK: No masses, no JVD. CHEST: No chest wall deformity. LUNGS: Equal air entry with bibasilar inspiratory crackles/rales. No wheezes, rhonchi or focal dullness. On room air. No conversational dyspnea or accessory muscle use.. CVS: S1 and S2 normal with no audible murmur, regular rhythm. No extra heart sounds ABDOMEN: No hepatosplenomegaly, active bowel sounds, no guarding or rigidity. SPINE: No scoliosis or deformity SKIN: No rashes CENTRAL NERVOUS SYSTEM: No focal deficits, tone is normal in all 4 extremities. EXTREMITIES: There is severe digital clubbing. There is no peripheral edema or cyanosis. Peripheral pulses are intact. - Labs CBC & Chem 7: 10/09/23 07:25 10/10/23 08:32 Labs: Abnormal Lab Results - Last 24 Hours (Table) 10/09/23 10/10/23 Range/Units 07:25 08:32 Glucose 100 H (74-99) mg/dL AST 48 H (14-36) U/L ALT 40 H (4-34) U/L Lactate Dehydrogenase 445 H (120-246) U/L C-Reactive Protein 3.3 H (<1.0) mg/dL Albumin 3.3 L (3.5-5.0) g/dL Assessment and Plan Assessment: Acute COVID-19 infection and suspected COVID-19 pneumonia. Chest x-ray on arrival showed increased lung markings, possibly related to COVID-19 pneumonia. No focal consolidations. Exertional dyspnea, secondary to above, improving Suspected underlying ILD, low-dose lung CT screening for lung cancer back in and the year prior, did show moderate pulmonary fibrotic changes suspicious for underlying pulmonary interstitial disease. Chronic obstructive pulmonary disease, stable Chronic ongoing tobacco dependence Hyperlipidemia Obesity, with a BMI of 34.1 kg/m Plan: patient is stable with Covid 19 infection and hypoxic respiratory failure. Noted the patient also has an underlying interstitial lung disease/pulmonary fibrosis and this has been admitted on several CAT scans of the chest was done on outpatient basis. She is a chronic smoker. Based on the CAT scan findings, the images are consistent with IPF. The infiltrates and the chronic scarring in the lung bases with subpleural distribution and typical for idiopathic pulmonary fibrosis. For now, the patient is doing well. She has been vaccinated for Covid 19 and she has received only a single booster. This is the patient's first infection with Covid 19. The patient the LDH level is 445. The patient is clinically stable. The patient can be discharged home on home O2 with a concentrator and a portable tanks. She'll be also complaining course of Decadron 6 mg for a total of 10 days to be followed up with us in the pulmonary clinic and he'll weeks' time. She also has a pulse oximeter at home.
[2023-10-10 15:27] VITALS: BP 112/67; PULSE 63; TEMP 97.9
--- NOTE | 2023-10-11 16:37 | P.DS ---
Providers Date of admission: 10/08/23 16:06 Expected date of discharge: 10/10/23 Attending physician: Octavio Mcconnell Consults: 10/08/23 16:17 Consult Physician Urgent Consulting Provider: Miles Martinez Reason/Comments: Hypoxia, Covid 19, COPD Do you want consulting provider notified?: Yes Primary care physician: Octavio Mcconnell Hospital Course: Final Diagnoses: Acute Covid-19 infection, possibly pneumonia Acute hypoxic respiratory failure, with exertion decreases to 87% room air, secondary to the above COPD Ongoing nicotine dependence Possible underlying pulmonary interstitial disease Morbid obesity, BMI 34 Depression Hyperlipidemia Hospital course:This is a 68-year-old female with past medical history significant for morbid obesity, ongoing nicotine dependence, COPD, depression and multiple other medical issues presented to an urgent care center, with worsening dyspnea, tested positive for Covid with hypoxia, proceeded the ER. Denies nausea vomiting or diarrhea. Reports last week she was treated by PCP for upper respiratory infection, dry nonproductive cough fevers and chills. Chest x-ray reported increased lung markings can be compatible with atypical pneumonia, some vascular prominence.ECG reported sinus rhythm. Upon ambulating to bathroom and patient's O2 sat decreased to 87%. Afebrile, normal WBC, hematology panel unremarkable, sodium 137, potassium 4.1,bicarb 23, BUN 12, creatinine 0.52, glucose 182 LFTs improving, LDH 445, troponins negative, CRP 6.6, pro calcitonin negative. Maintained on Covid cocktail with dexamethasone, vitamin supplements, Lovenox for DVT prophylaxis,aggressive pulmonary toileting with Ventolin HFA.Smoking cessation reinforced. Clinically stable. Desat's with exertion to 85%, on room air ,will require oxygen at discharge. Patient is eager for discharge. Cleared by pulmonary for discharge. Patient will be discharged home today in a stable condition with guarded prognosis. The impression and plan of care has been dictated as directed. : I performed a history and examination of this patient, discussed the same with the dictator. I agree with the dictator's note ,documented as a scribe. Any additional findings or plans will be noted. Patient Condition at Discharge: Stable Plan - Discharge Summary New Discharge Prescriptions: New Nicotine 21Mg/24Hr Patch [Habitrol] 1 patch TRANSDERM DAILY #30 patch Albuterol Inhaler [Ventolin Hfa Inhaler] 2 puff INHALATION RT-QID PRN #1 each PRN Reason: Shortness Of Breath Cholecalciferol [Vitamin D3 (125 Mcg = 5000 Iu)] 125 mcg PO DAILY #30 tab dexAMETHasone ORAL [Hexadrol] 6 mg PO DAILY #8 tab Zinc Sulfate [Orazinc] 220 mg PO DAILY #30 cap Acetaminophen Tab [Tylenol] 650 mg PO Q4HR PRN tab PRN Reason: Fever>101 Ascorbic Acid [Vitamin C] 500 mg PO BID #60 tab Continue FLUoxetine HCL 80 mg PO DAILY Rosuvastatin Calcium [Crestor] 40 mg PO DAILY Discharge Medication List FLUoxetine HCL 80 mg PO DAILY 10/08/23 [History] Rosuvastatin Calcium [Crestor] 40 mg PO DAILY 10/08/23 [History] Acetaminophen Tab [Tylenol] 650 mg PO Q4HR PRN tab 10/10/23 [Rx] Albuterol Inhaler [Ventolin Hfa Inhaler] 2 puff INHALATION RT-QID PRN #1 each 10/10/23 [Rx] Ascorbic Acid [Vitamin C] 500 mg PO BID #60 tab 10/10/23 [Rx] Cholecalciferol [Vitamin D3 (125 Mcg = 5000 Iu)] 125 mcg PO DAILY #30 tab 10/10/23 [Rx] Nicotine 21Mg/24Hr Patch [Habitrol] 1 patch TRANSDERM DAILY #30 patch 10/10/23 [Rx] Zinc Sulfate [Orazinc] 220 mg PO DAILY #30 cap 10/10/23 [Rx] dexAMETHasone ORAL [Hexadrol] 6 mg PO DAILY #8 tab 10/10/23 [Rx] Follow up Appointment(s)/Referral(s): Octavio Mcconnell DO [Primary Care Provider] - 3 Days Discharge Disposition: HOME SELF-CARE
== END 2023-10-10 15:10 | disposition home or self-care (01) | DRG 177 ==
LOC: EC 10:23 → 3SCARD 16:06
PROVIDERS: ADMIT Family Medicine; ATTEND Family Medicine
DX: U07.1 COVID-19 (principal); J12.82 Pneumonia due to coronavirus disease 2019; J96.01 Acute respiratory failure with hypoxia; J44.0 Chronic obstructive pulmonary disease with (acute) lower respiratory infection; F17.210 Nicotine dependence, cigarettes, uncomplicated; J84.112 Idiopathic pulmonary fibrosis; Z68.34 Body mass index [BMI] 34.0-34.9, adult; L30.9 Dermatitis, unspecified; F32.A Depression, unspecified; E66.01 Morbid (severe) obesity due to excess calories; E78.5 Hyperlipidemia, unspecified; Z88.5 Allergy status to narcotic agent; Z79.899 Other long term (current) drug therapy
CPT/HCPCS: 36415; 71046; 80053; 83615; 83880; 84145; 84484; 85025; 85610; 85730; 86140; 93005; 94640; 94760; 96361; 96372; 96374; 96375; 96376; 99285

== ENCOUNTER → 2023-12-26 | Outpatient (CLI) | payer MEDICARE ==
--- NOTE | 2023-12-27 20:04 | MM ---
Reason for Exam: Screening (asymptomatic). Last mammogram was performed 2 year(s) and 4 month(s) ago. Patient History: Menarche at age 10. Left ovary removed at age 41. Right ovary removed at age 41. Hysterectomy at age 41. Postmenopausal. Estrogen for 11 years, 6 months. Patient used Hormonal Contraceptives for 10 years. Cyst Aspiration on the Left side. Risk Values: Viri 5 year model risk: 1.2%. NCI Lifetime model risk: 3.7%. Prior Study Comparison: 11/12/2015 Bilateral Screening Mammogram, [facility]. 03/14/2019 Bilateral Screening Mammogram, [facility]. 08/18/2021 Bilateral Screening Mammogram, [facility]. Tissue Density: There are scattered fibroglandular densities. Findings: Analyzed By CAD. Unchanged bilateral areas of asymmetric density. There is no suspicious group of microcalcifications or new suspicious mass in either breast. Overall Assessment: Benign, BI-RAD 2 Management: Screening Mammogram of both breasts in 1 year. . Patient should continue monthly self-breast exams. A clinical breast exam by your physician is recommended on an annual basis. This exam should not preclude additional follow-up of suspicious palpable abnormalities. Note on Viri scores and lifetime risk: 1. A Viri score greater than 3% is considered moderate risk. If this is the case, consider specialist referral to assess eligibility for a risk reducing agent. 2. If overall lifetime risk for the development of breast cancer is 20% or higher, the patient may qualify for future screening with alternating mammogram and breast MRI. Electronically signed and approved by: Facundo Jones M.D. Radiologist
== END | disposition home or self-care (01) ==
LOC: RADMAMWWP 07:44
PROVIDERS: ATTEND Family Medicine
DX: Z12.31 Encounter for screening mammogram for malignant neoplasm of breast (principal); Z78.0 Asymptomatic menopausal state
CPT/HCPCS: 77063; 77067

== ENCOUNTER → 2024-08-13 | Outpatient (CLI) | payer MEDICARE ==
--- NOTE | 2024-08-13 11:47 | CTL ---
EXAMINATION TYPE: CT Low Dose Lung DATE OF EXAM ORDERED: 08/13/2024 HISTORY: Nicotine dependence, current smoker, 38 pack-year history. Lung cancer screening CT DLP: [address] CTDI: 2.41 mGy Automated exposure control for dose reduction was used. SCREENING VISIT: Third screening visit COMPARISON: CT Low Dose Lung 08/08/2023, 07/19/2022 TECHNIQUE: Low dose computed tomography scan was performed through the chest at 1 mm thick sections a nd reconstructed images in multiple planes at 1 mm and [address] DIAGNOSTIC QUALITY: Satisfactory FINDINGS: Nodules: No clinically significant pulmonary nodules. LUNGS: COPD: Severity: Mild Fibrosis: Severity: Moderate to advanced pulmonary changes throughout the lungs most pronounced in th e periphery with scattered groundglass opacities. Lymph nodes: Stable prominent mediastinal lymph nodes. Other findings: None RIGHT PLEURAL SPACE: Effusion: None Calcification: None Thickening: None Pneumothorax: None LEFT PLEURAL SPACE: Effusion: None Calcification: None Thickening: None Pneumothorax: None HEART: Heart Size: Normal Coronary Calcification: Moderate Pericardial Effusion: None OTHER FINDINGS: Upper abdomen: Small hiatal hernia. Bony thorax: None Supraclavicular region: None Other: None IMPRESSION: 1. No clinically significant pulmonary nodules. 2. Significant bilateral pulmonary fibrotic changes are redemonstrated. CT LUNG RAD AND CT CHEST RECOMMENDATION: Lung-Rad 1 Negative: Continue annual screening with LDCT in 12 months. S Modifier (other clinically significant findings): [facility], , 08/13/2024 11:45 AM
== END | disposition home or self-care (01) ==
LOC: RADCTMAIN 10:20
PROVIDERS: ATTEND Family Medicine
DX: Z87.891 Personal history of nicotine dependence
CPT/HCPCS: 71271